=== PATIENT | female | born 1990 ===

== ENCOUNTER 2016-10-19 19:33 | Emergency (ER) | payer OTHER ==
[2016-10-19] MEDS ORDERED: DOXYcycline CAP(*) 100 MG PO ONE (20:03)
--- NOTE | 2016-10-19 20:32 | UC ---
yasmine Gibbs Timothy, scribed for Nupur Cheney MD on 10/19/16 at 1959 . Skin Complaint HPI - HPI Summary HPI Summary: Mignon Zaldivar is a 26 yo female presenting to [facility] with a tick on her found this am that she believes was on less than 24 hours. Pt is concerned for lyme disease and is requesting treatment. Pt's sibling, and parents have all had lyme. Pt visiting them from [place]. She is not in any current pain. Pt not immunocompromised. No complaints Her MHx includes wisdom teeth extraction. Pt medication list reviewed this visit. She is visiting from [place]. Her LNMP was the beginning of September. - History of Current Complaint Time Seen by Provider: 10/19/16 19:54 Stated Complaint: TICK BITE Hx Obtained From: Patient Hx Last Menstrual Period: iud Onset/Duration: Sudden Onset, Lasting Hours, Resolved Skin Exposure Onset/Duration: Hours Ago Timing: Constant Onset Severity: Moderate Current Severity: Moderate Pain Intensity: 0 Pain Scale Used: 0-10 Numeric Related History: Insect Bite/Sting - Allergy/Home Medications Allergies/Adverse Reactions: Allergies Allergy/AdvReac Type Severity Reaction Status Date / Time Ibuprofen Allergy Hives Verified 10/19/16 19:43 Home Medications: Home Medications NK [No Home Medications Reported] 10/19/16 [History Confirmed 10/19/16] Review of Systems Constitutional: Negative Skin: Other - tick bite Eyes: Negative ENT: Negative Respiratory: Negative Cardiovascular: Negative Gastrointestinal: Negative Genitourinary: Negative Motor: Negative Neurovascular: Negative Musculoskeletal: Negative Neurological: Negative Psychological: Negative All Other Systems Reviewed And Are Negative: Yes PMH/Surg Hx/FS Hx/Imm Hx Previously Healthy: Yes GI/ History: Other Other GI/ History: PID x2, UTI - Surgical History Surgical History: Yes Surgery Procedure, Year, and Place: wisdom teeth extraction - Family History Known Family History: Positive: Cardiac Disease, Hypertension, Diabetes, Other - lyme disease - Social History Occupation: Employed Full-time Alcohol Use: Occasionally Substance Use Type: None Smoking Status (MU): Never Smoked Tobacco Physical Exam Triage Information Reviewed: Yes Appearance: Well-Appearing, No Pain Distress, Well-Nourished Vital Signs: Initial Vital Signs Temp 98.6 F 10/19/16 19:39 Pulse 70 10/19/16 19:39 Resp 18 10/19/16 19:39 BP 111/69 10/19/16 19:39 Pulse Ox 100 10/19/16 19:39 Vital Signs Reviewed: Yes Eye Exam: Normal ENT Exam: Normal Dental Exam: Normal Neck exam: Normal Neck: Positive: 1 Respiratory Exam: Normal Cardiovascular Exam: Normal Abdominal Exam: Normal Musculoskeletal Exam: Normal Neurological Exam: Normal Psychological Exam: Normal Skin: Positive: Other - right mid ax line at level of 12th rib pt with small, red raised area approx 4mm. Pt state site of tick - no retained part noted. Course/Dx - Course Course Of Treatment: Mignon Zaldivar is a 26 yo female presenting to [facility] with a tick bite since this morning, she believes less than 24 hours. Pt medication list reviewed this visit. Pt was counseled that CDC recommendations would not recommend prophylactic Tx. Pt would prefer to receive the Tx regardless due to family members with lyme dx diagnosis and complications. She will receive prophylactic Tx in urgent care today. After clinical examiantion and administration of Tx, she will be discharged home with appropriate instructions and follow up. - Differential Diagnoses - Skin Complaint Differential Diagnoses: Tick Born Illness - Diagnoses Provider Diagnoses: tick bite Discharge - Discharge Plan Condition: Stable Disposition: HOME Patient Education Materials: Tick Bite (ED), Lyme Disease (ED) Referrals: No Primary Care Phys,NOPCP [Primary Care Provider] - Additional Instructions: Approach to prophylaxis : According to the Infectious Diseases Society of [place] (IDSA) guidelines that recommend antibiotic prophylaxis only in patients who meet all of the following criteria: 1. Attached tick identified as an adult or nymphal I. scapularis tick (deer tick). 2. Tick is estimated to have been attached for 36 hours (by degree of engorgement or time of exposure). 3. Prophylaxis is begun within 72 hours of tick removal. Local rate of infection of ticks with B. burgdorferi is 20 percent if attached for over 48 hours (these rates of infection have been shown to occur in parts of [place], parts of the [facility], and parts of [place] and [place]). If you experience a tick and time of attachment is believed to be less than 36 hours, you may remove the tick with head intact and no need for prophylaxis. If over 36 hours, please come into UC. Prophylactic doxycycline is not recommended for ticks attached less than 36 hours. After discussion with you, a decision was made to give you prophylaxis. This is a one time dose of medication that you received here today Monitor your tick bite wound for signs of infection - redness, red streaking, drainage - follow-up with your doctor when you return to [place] or you have any other questions or concerns The documentation as recorded by the yasmine mays Timothy accurately reflects the service I personally performed and the decisions made by me, Nupur Cheney MD.
== END 2016-10-19 20:34 | disposition home or self-care (01) ==
LOC: UCEAST 19:33
DX: S40.861A Insect bite (nonvenomous) of right upper arm, initial encounter (principal); W57.XXXA Bitten or stung by nonvenomous insect and other nonvenomous arthropods, initial encounter; Y93.9 Activity, unspecified; Y92.9 Unspecified place or not applicable; Y99.9 Unspecified external cause status; A69.20 Lyme disease, unspecified
CPT/HCPCS: 99202; A9270-GY; G0463